=== PATIENT | male | born 1955 ===

== ENCOUNTER → 2017-01-22 | Outpatient (CLI) | payer BC ==
[2017-01-22 17:53] LABS: BLOOD UREA NITROGEN 14 mg/dl (7-18); BUN/CREATININE RATIO 14.8 (10-20); CALCIUM 9.3 mg/dl (8.5-10.1); CARBON DIOXIDE 29 mmol/L (21-32); CHLORIDE 104 mmol/L (98-107); CHOLESTEROL 169 mg/dl (0-200); CREATININE 0.96 mg/dl (0.60-1.40); GLUCOSE 78 mg/dl (70-99); POTASSIUM 3.6 mmol/L (3.5-5.1); SODIUM 137 mmol/L (136-145); TRIGLYCERIDES 130 mg/dl (0-150); VERY LOW DENSITY LIPOPROT CALC 26 mg/dl
[2017-01-22 17:55] LABS: CHOLESTEROL/HDL RATIO 2.8; HDL CHOLESTEROL 61 mg/dl; LDL CHOLESTEROL CALCULATED 82 mg/dl
== END | disposition home or self-care (01) ==
LOC: C.LABPVFM 13:39
PROVIDERS: ATTEND Family Medicine
DX: I10 Essential (primary) hypertension (principal); Z13.220 Encounter for screening for lipoid disorders